=== PATIENT | female | born 1995 | race Caucasian/White ===

== ENCOUNTER 2016-10-18 20:51 | Emergency (ER) | payer BC ==
[~2016-10-18] VITALS: Ht 154.9 cm; Wt 75.3 kg
[~2016-10-18 20:51] MED LIST: BACTRIM,SEPT1 TABLET PO; CELEXA10 MG PO; CHROMAGEN,1 CAPSULE PO; CITALOPRAM HBR10 MG; CITALOPRAM HBR20 MG PO; DEPAKOTE500 MG PO; FLOVENT DISKUS1 DISK IH; IBUPROFEN800 MG PO; LAMICTAL150 M1 PO; LAMOTRIGINE150 MG; LAMOTRIGINE150 MG PO; MACROBID100 MG PO; PRENATAL TABLE1 EACH PO; PROVENTIL2.5 MG/3 M IH; PYRIDIUM200 MG PO; SYMBICORT60 INHALA1 IH; VENTOLIN HFA18 GM IH; [UNRECOGNIZED DRUG - REMARK]
[2016-10-18 21:34] LABS: HEMATOCRIT 39.4 % (36.0-46.0); MCH 31.2 PG (29.0-34.0); MCHC 34.8 G/DL (30.0-36.0); MCV 89.7 FL (83-99); MEAN PLAT.VOLUME 9.2 uM^3 (9.5-12.4); PLATELET COUNT 231 K/uL (156-360); RBC DIS.WIDTH-SD 38.6 % (39-53); RED BLOOD COUNT 4.39 M/uL (3.80-5.20); WHITE BLOOD COUNT 10.6 K/uL (4.1-10.2)
[2016-10-18 21:44] LABS: CHLORIDE 109 mEq/L (99-109); POTASSIUM 4.1 mEq/L (3.7-5.4); SODIUM 141 mEq/L (136-147)
[2016-10-18 21:46] LABS: GLUCOSE 91 mg/dL (70-99)
[2016-10-18 21:47] LABS: ANION GAP 7 MEQ/L (2-14)
[2016-10-18 21:49] LABS: SERUM ETHYL ALCOHOL < 10 mg/dL
[2016-10-18 21:50] LABS: GFR ESTIMATE (CALCULATED) > 59 mL/min/
[2016-10-18 21:51] LABS: UREA NITROGEN (BUN) 13 mg/dL (9-23)
[2016-10-18 21:58] LABS: QUANTITATIVE HCG < 4.0 MIU/ML
[2016-10-18 22:36] VITALS: BP 126/74
== END 2016-10-18 22:37 | disposition home or self-care (01) ==
LOC: EME 20:51
PROVIDERS: Emergency Medicine
DX: R45.4 Irritability and anger (principal); T43.595A Adverse effect of other antipsychotics and neuroleptics, initial encounter; F32.9 Major depressive disorder, single episode, unspecified
CPT/HCPCS: 80048; 80178; 84702; 85027; 99281; 99284; G0480

== ENCOUNTER 2016-12-16 19:31 | Emergency (ER) | payer BC ==
[~2016-12-16] VITALS: Ht 154.9 cm; Wt 75.3 kg
[2016-12-16 20:12] LABS: HEMATOCRIT 42.7 % (36.0-46.0); MCH 31.1 PG (29.0-34.0); MCHC 34.2 G/DL (30.0-36.0); MCV 90.9 FL (83-99); MEAN PLAT.VOLUME 9.1 uM^3 (9.5-12.4); PLATELET COUNT 238 K/uL (156-360); RBC DIS.WIDTH-CV 11.6 % (11.8-14.6); RBC DIS.WIDTH-SD 38.7 % (39-53); WHITE BLOOD COUNT 11.4 K/uL (4.1-10.2)
[2016-12-16 20:28] LABS: CHLORIDE 105 mEq/L (99-109); POTASSIUM 3.7 mEq/L (3.7-5.4); SODIUM 139 mEq/L (136-147)
[2016-12-16 20:30] LABS: GLUCOSE 88 mg/dL (70-99)
[2016-12-16 20:31] LABS: ANION GAP 9 MEQ/L (2-14)
[2016-12-16 20:33] LABS: SERUM ETHYL ALCOHOL < 10 mg/dL
[2016-12-16 20:34] LABS: GFR ESTIMATE (CALCULATED) > 59 mL/min/
[2016-12-16 20:35] LABS: UREA NITROGEN (BUN) 14 mg/dL (9-23)
[2016-12-16 20:42] LABS: QUANTITATIVE HCG < 4.0 MIU/ML
[2016-12-16 20:52] LABS: AMPHETAMINE NEGATIVE (500 ng/mL); BARBITURATES NEGATIVE (200 ng/mL); BENZODIAZEPINES NEGATIVE (150 ng/mL); COCAINE NEGATIVE (150 ng/mL); INTERNAL CONTROLS VALID? YES; METHADONE NEGATIVE (200 ng/mL); METHAMPHETAMINE NEGATIVE (500 ng/mL); OPIATES (MORPHINE) NEGATIVE (100 ng/mL); OXYCODONE NEGATIVE (100 ng/mL); PHENCYCLIDINE NEGATIVE (25 ng/mL); PROPOXYPHENE NEGATIVE (300 ng/mL); THC CANNABINOIDS NEGATIVE (50 ng/mL); TRICYCLIC ANTIDEPRESSANTS NEGATIVE (300 ng/mL)
[2016-12-16 23:58] VITALS: BP 116/78
== END 2016-12-16 23:59 | disposition home or self-care (01) ==
LOC: EME 19:31 → EDOF 23:11 → EME 23:11 → EDOF 12-17 00:07
DX: F31.9 Bipolar disorder, unspecified (principal); Z87.891 Personal history of nicotine dependence
CPT/HCPCS: 80048; 80178; 84702; 85027; 90839; 99281; 99285; G0480

== ENCOUNTER 2017-01-04 20:35 | Emergency (ER) | payer SELFPAY ==
[~2017-01-04] VITALS: Ht 157.5 cm; Wt 76.8 kg
[2017-01-04 21:13] LABS: ADD MIUA? YES; BILIRUBIN NEGATIVE; BLOOD SMALL; COLOR YELLOW ((YELLOW)); GLUCOSE (STRIP) NEGATIVE; KETONES NEGATIVE; LEUKOCYTES TRACE; NITRITE NEGATIVE; PROTEIN (STRIP) NEGATIVE; SPECIFIC GRAVITY 1.016 (1.000-1.030); UROBILINOGEN 0.2 MG/DL (0.2-1.0)
[2017-01-04 21:22] LABS: BACTERIA RARE /HPF; EPITHELIAL CELLS RARE /HPF; MUCUS TRACE /LPF; RED BLOOD CELLS 0-5 /HPF (0-5); UCUL ADDED? NO; WHITE BLOOD CELLS 20-30 /HPF (0-5)
[2017-01-04 21:30] LABS: HEMATOCRIT 41.5 % (36.0-46.0); MCH 31.2 PG (29.0-34.0); MCHC 33.7 G/DL (30.0-36.0); MCV 92.4 FL (83-99); MEAN PLAT.VOLUME 9.1 uM^3 (9.5-12.4); PLATELET COUNT 252 K/uL (156-360); RBC DIS.WIDTH-CV 11.9 % (11.8-14.6); RBC DIS.WIDTH-SD 40.6 % (39-53); RED BLOOD COUNT 4.49 M/uL (3.80-5.20); WHITE BLOOD COUNT 11.5 K/uL (4.1-10.2)
[2017-01-04 21:47] LABS: CHLORIDE 107 mEq/L (99-109); SODIUM 139 mEq/L (136-147)
[2017-01-04 21:49] LABS: GLUCOSE 94 mg/dL (70-99)
[2017-01-04 21:50] LABS: ANION GAP 8 MEQ/L (2-14)
[2017-01-04 21:51] LABS: TOTAL BILIRUBIN 1.5 mg/dL (0.0-1.0)
[2017-01-04 21:52] LABS: ALKALINE PHOSPHATASE 87 IU/L (3-129)
[2017-01-04 21:53] LABS: GFR ESTIMATE (CALCULATED) > 59 mL/min/
[2017-01-04 21:54] LABS: UREA NITROGEN (BUN) 16 mg/dL (9-23)
[2017-01-04 22:02] LABS: QUANTITATIVE HCG < 4.0 MIU/ML
[2017-01-04 23:07] LABS: LIPASE 19 U/L (1.0-51.0)
[2017-01-05] MEDS ORDERED: MACROBID100 MG PO (00:45)
[2017-01-05] MEDS ORDERED: PROMETHAZINE HC25 M1 PO (00:46)
[2017-01-05 00:56] VITALS: BP 101/59
== END 2017-01-05 00:58 | disposition home or self-care (01) ==
LOC: EME 20:35
DX: N39.0 Urinary tract infection, site not specified (principal); J45.909 Unspecified asthma, uncomplicated; F31.9 Bipolar disorder, unspecified; Z87.891 Personal history of nicotine dependence; N92.6 Irregular menstruation, unspecified
CPT/HCPCS: 80053; 80178; 81003; 83690; 84702; 85027; 99281; 99284

== ENCOUNTER 2017-03-08 00:05 | Emergency (ER) | payer SELFPAY ==
[~2017-03-08] VITALS: Ht 162.6 cm; Wt 78.3 kg
[~2017-03-08 00:05] MED LIST changes: +PROMETHAZINE HC25 M1 PO
[2017-03-08] MEDS ORDERED: BACTRIM,SEPT1 TABLET PO (00:24)
[2017-03-08 00:48] VITALS: BP 118/74
== END 2017-03-08 00:49 | disposition home or self-care (01) ==
LOC: EME 00:05
DX: S00.36XA Insect bite (nonvenomous) of nose, initial encounter (principal); L08.9 Local infection of the skin and subcutaneous tissue, unspecified; W57.XXXA Bitten or stung by nonvenomous insect and other nonvenomous arthropods, initial encounter
CPT/HCPCS: 99281; 99283

== ENCOUNTER 2017-04-02 00:32 | Emergency (ER) | payer SELFPAY ==
[~2017-04-02] VITALS: Ht 154.9 cm; Wt 76.9 kg
[2017-04-02 01:02] LABS: HEMATOCRIT 41.7 % (36.0-46.0); MCH 31.3 PG (29.0-34.0); MCHC 34.8 G/DL (30.0-36.0); MCV 89.9 FL (83-99); PLATELET COUNT 211 K/uL (156-360); RBC DIS.WIDTH-CV 11.9 % (11.8-14.6); RBC DIS.WIDTH-SD 38.7 % (39-53); RED BLOOD COUNT 4.64 M/uL (3.80-5.20); WHITE BLOOD COUNT 10.4 K/uL (4.1-10.2)
[2017-04-02 01:23] LABS: CHLORIDE 107 mEq/L (99-109); SODIUM 138 mEq/L (136-147)
[2017-04-02 01:24] LABS: GLUCOSE 95 mg/dL (70-99)
[2017-04-02 01:26] LABS: ANION GAP 9 MEQ/L (2-14); TROP-I INTERPRETATION NEGATIVE; TROPONIN-I < 0.01 ng/mL (0.0-0.30)
[2017-04-02 01:28] LABS: GFR ESTIMATE (CALCULATED) > 59 mL/min/
[2017-04-02 01:29] LABS: UREA NITROGEN (BUN) 14 mg/dL (9-23)
[2017-04-02] MEDS ORDERED: AUGMENTIN875 MG PO (02:19)
[2017-04-02 02:40] VITALS: BP 125/84
== END 2017-04-02 02:43 | disposition home or self-care (01) ==
LOC: EME 00:32
DX: H66.92 Otitis media, unspecified, left ear (principal); R07.9 Chest pain, unspecified; M25.552 Pain in left hip; M54.2 Cervicalgia
CPT/HCPCS: 71020; 80048; 84484; 85027; 93005; 99281; 99284